=== PATIENT | male | born 1990 | race Caucasian/White ===

== ENCOUNTER 2019-07-30 13:52 | Emergency (ER) | payer SELFPAY ==
[2019-07-30 13:57] VITALS: BP 134/75; PULSE 65; RESP 12; TEMP 36.9; O2SAT 99
[2019-07-30 14:11] VITALS: RESP 16
--- NOTE | 2019-07-30 14:13 | ED.GENADUL_ITS ---
Discharge Plan Disposition Patient Disposition: HOME Condition: Improving Discharge Details Chief Complaint: Chest Pain Clinical Impression: Atypical chest pain Primary Care Provider: Jeffery Andino ED Provider: Maunel Lin Home Meds and New Rx's Prescriptions: No Action No Known Home Meds RF: 0 Discharge Instructions Instructions: Chest Pain (ED) Additional Instructions: Home to rest today. May use Tylenol if needed for further aches or pains. Return if you develop shortness of breath, fever, worsening discomfort or any other acute concerns. You were given ketorolac and you may have additional ibuprofen for pain if needed in 6 hours time. Medical Decision Making This is an otherwise healthy 29-year-old male who states he recently had viral/flulike symptoms with cough. Subsequently he developed transient 2 to 10 minutes left sided pressure or bubblelike dull discomfort in his chest that improved with a popsicle. He is not had shortness of breath, no fevers. No prolonged immobilization denies recent travel, lower extremity pain or swelling. His vital signs are normal and his exam is reassuring. ECG Data Attestation: I personally reviewed and interpreted this ECG (s) as follows: Interpretation: Normal sinus rhythm with a rate of 83, the QRS is narrow, there is no ST segment elevation present. QTC of 446. HPI General Mode of arrival: ambulatory . Date/Time Provider Initiated Documentation: 07/30/19 13:55 . Limitations to Documentation: no limitations . Information obtained by: patient . History of Present Illness 29 year old M presents to the emergency department with the chief complaint of Left chest intermittent discomfort, described as mild, Quality is described as dull, and is localized to the chest and left. Patient reports no radiation. Patient started experiencing this day(s) and it has been intermittent and now resolved. No relieving factors improve symptom(s), No exacerbating factors reported . Patient notes other (Recent flulike symptoms which he states are improving. Improves with a popsicle.). Patient did receive the following treatments prior to arrival, none Related Data Home Medications Medication Instructions Recorded Confirmed Unknown [No Known Home Meds] 07/30/19 07/30/19 Allergies Allergy/AdvReac Type Severity Reaction Status Date / Time No Known Allergies Allergy Unverified 07/30/19 13:59 General Stated Complaint: Chest Pain JAY JAY: 3 Review of Systems Narrative: 6 systems reviewed and otherwise negative [facility] Family History Mother COPD (chronic obstructive pulmonary disease) Father Hyperlipidemia Sister No problems noted. Brother Mental disorder ANXIETY/DEPRESSION Grandfather Essential hypertension Heart disease Hyperlipidemia Grandfather Diabetes Heart disease Mental disorder DEMENTIA Grandmother Essential hypertension Personal history of malignant neoplasm Grandmother Hyperlipidemia Brother Asthma Social History Smoking/Tobacco Use Status: Current every day Tobacco Type: cigarettes Alcohol Intake: never Drug use: Never Substance use type: does not use Do you feel safe at home: Yes Do you feel safe in your relationship?: Yes Exam Narrative Exam Narrative: GEN: awake, alert, oriented 3. Pleasant, well groomed, interactive. HEAD: Normocephalic, atraumatic ENT: Mucous membranes moist, oropharynx unremarkable, External ear exam unremarkable EYES: PERRL, EOMI NECK: Full ROM, no MAGUI, no menigismus CHEST/RESP: Nontender, clear to auscultation bilateral, no wheeze/rhonchi/rales CARDIOVASCULAR: RRR, no murmur, rub carlos. 2+ Rad pulse bilateral ABDOMEN: Soft, nontender, no mass. +Bowel sounds EXT: Full ROM, no edema, no rash Neuro: Grossly normal neurologic exam, conversant, interactive. Psych: Speech fluent, thoughts congruent, affect normal Course Vital Signs Vital signs: Vital Signs Temperature 36.9 C 07/30/19 13:57 Pulse 65 07/30/19 13:57 Respiratory Rate 12 07/30/19 13:57 Blood Pressure 134/75 07/30/19 13:57 Pulse Oximetry 99 07/30/19 13:57 Temperature 36.9 C 07/30/19 13:57 Temperature Source Temporal Artery Scan 07/30/19 13:57 Pulse 65 07/30/19 13:57 Respiratory Rate 16 07/30/19 14:11 Respiratory Effort Non-Labored 07/30/19 14:11 Respiratory Depth Normal 07/30/19 14:11 Respiratory Pattern Normal 07/30/19 14:11 Blood Pressure 134/75 07/30/19 13:57 Blood Pressure Position Sitting 07/30/19 13:57 Pulse Oximetry 99 07/30/19 13:57 Oxygen Delivery Method Room Air 07/30/19 13:57 Oxygen Flow Rate 0 07/30/19 13:57 Pain Level 2 07/30/19 14:11
[2019-07-30 14:25] LABS: Abs Immature Grans 0.01 k/cumm (0.0-0.09); Absolute Basophil Count 0.01 k/cumm (0.0-0.2); Absolute Eosinophil Count 0.07 k/cumm (0.0-0.7); Absolute Lymphocyte Count 1.57 k/cumm (1.2-3.4); Absolute Monocyte Count 0.53 k/cumm (0.11-0.7); Absolute Neutrophil Count 5.42 k/cumm (1.2-6.7); Basophils % 0.1; Eosinophils % 0.9; HCT 43.9 % (40.0-50.0); HGB 15.1 g/dL (13.5-17.5); Immature Grans % 0.1 %; Lymphocytes % 20.6; Mean Corp. HGB Concentration 34.4 g/dL (32.0-36.0); Mean Corpuscular Hemoglobin 29.8 pg (27.0-33.0); Mean Corpuscular Volume 86.6 fL (80-95); Mean Platelet Volume 10.8 fL (8.0-11.0); Neutrophils % 71.3; Platelet Count 222 x1000/uL (130-400); RBC 5.07 m/cumm (4.50-6.00); RBC Distribution Width 12.6 % (11.8-14.1); White Blood Cell Count 7.61 k/cumm (4.4-10.8)
--- NOTE | 2019-07-30 14:28 | DI.RAD_ITS ---
EXAM: XR CHEST 2V PA AND LATERAL INDICATION: cough, L chest discomfort. COMPARISON: No exams were available for comparison TECHNIQUE: 2D digital imaging was performed. FINDINGS: Cardiac and mediastinal contours have a normal appearance. The lungs are well inflated and clear. N o infiltrate, effusion or pneumothorax is seen. IMPRESSION: Negative chest x-ray.
[2019-07-30 14:39] LABS: ALT 24 U/L (16-63); AST 14 U/L (15-37); Albumin 4.3 g/dL (3.4-5.0); Alkaline Phosphatase 69 U/L (46-116); Anion Gap 8.7 mmol/L (3-11); BUN 7 mg/dL (7-18); Bilirubin, Total 0.3 mg/dL (0.2-1.0); CO2 30.3 mmol/L (21.0-32.0); CREATININE 0.81 mg/dL (0.70-1.30); Calcium 9.7 mg/dL (8.5-10.1); Chloride 104 mmol/L (98-107); Glucose 129 mg/dL (74-106); Magnesium 1.8 mg/dL (1.8-2.4); Potassium 3.8 mmol/L (3.5-5.1); Sodium 143 mmol/L (136-145); Total Protein 7.7 g/dL (6.4-8.2)
[2019-07-30 14:41] LABS: Troponin I < 0.05 ng/Ml (<0.06)
[2019-07-30 15:10] VITALS: BP 134/75; PULSE 65; RESP 16; TEMP 36.9; O2SAT 99
[2019-07-30] MEDS: Ketorolac 15 MG/ML VIAL IVP (15:10)
[2019-07-30 15:14] VITALS: BP 134/79; PULSE 87; RESP 16; TEMP 37.1; O2SAT 98
== END 2019-07-30 15:10 | disposition home or self-care (01) ==
PROVIDERS: Emergency Provider Emergency Medicine; PCP Family Medicine
DX: R07.89 Other chest pain (principal); F17.210 Nicotine dependence, cigarettes, uncomplicated
CPT/HCPCS: 36415; 80053; 93005; 96374; 99285; 71046; 83735; 84484; 85025; 93010; 99284; J1885

== ENCOUNTER 2020-09-27 16:27 | Outpatient (REF) | payer MEDICAID, SELFPAY ==
--- NOTE | 2020-09-27 16:13 | SKI_PTH ---
PATIENT: Martin Moreno LOC: [facility] U#:[id number] AGE/SX: 30/M ROOM: RE09/27/[address]: Reuben Tucker DO : 1990 BED: DIS: 09/27/2020 SPEC #: [id number] RECD: 09/27/20 17:53 STATUS: DIMITRI REQ #: [id number] RUSTY: 09/27/20 16:[address]: Reuben Tucker DEPT: Surgical Specimen RECD BY: Magy Roman ENTERED: 09/27/20 17:53 SP TYPE: RENETTA CARL DR: Daniela Ram, PhD PIZZA CHEF Tissues: 1 - SKIN BIOPSY(SHAVE/PUNCH) Procedures: SKIN LEVEL 4 Comments: [id number]
== END 2020-09-27 16:28 | disposition home or self-care (01) ==
LOC: LBN 16:27
PROVIDERS: PCP Nurse Practitioner; Visit Provider Otolaryngology Otolaryngology/Facial Plastic Surgery
DX: L82.0 Inflamed seborrheic keratosis (principal)
CPT/HCPCS: 88305

== ENCOUNTER 2021-06-17 02:48 | Outpatient (CLI) | payer MEDICAID, SELFPAY ==
[2021-06-17 13:48] LABS: Hemoglobin A1C 5.4 % (<5.7)
[2021-06-17 14:16] LABS: Calculated LDL 112 mg/dL (<100); Cholesterol 171 mg/dL (<200); HDL Cholesterol 38 mg/dL (40-60); Triglyceride 107 mg/dL (<150)
== END 2021-06-17 02:49 | disposition home or self-care (01) ==
LOC: LBO 02:48
PROVIDERS: PCP Nurse Practitioner; Visit Provider Nurse Practitioner
DX: Z13.1 Encounter for screening for diabetes mellitus (principal); Z13.6 Encounter for screening for cardiovascular disorders; Z13.220 Encounter for screening for lipoid disorders
CPT/HCPCS: 36415; 80061; 83036

== ENCOUNTER 2025-02-17 04:46 | Outpatient (CLI) | payer MEDICAID, SELFPAY ==
[2025-02-17 12:39] LABS: ALT 23 U/L (16-63); AST 15 U/L (15-37); Albumin 4.0 g/dL (3.4-5.0); Alkaline Phosphatase 93 U/L (46-116); Anion Gap 6.6 mmol/L (3-11); BUN 8 mg/dL (7-18); Bilirubin, Total 0.4 mg/dL (0.2-1.0); CO2 31.4 mmol/L (21.0-32.0); Calcium 9.2 mg/dL (8.5-10.1); Calculated LDL 172 mg/dL (<100); Chloride 103 mmol/L (98-107); Cholesterol 236 mg/dL (<200); Estimated GFR 119.84 (mL/min/1.73m2); Glucose 93 mg/dL (74-106); HDL Cholesterol 33 mg/dL (>or=40); Potassium 3.7 mmol/L (3.5-5.1); Sodium 141 mmol/L (136-145); Total Protein 7.4 g/dL (6.4-8.2); Triglyceride 155 mg/dL (<150)
== END 2025-02-17 04:47 | disposition home or self-care (01) ==
PROVIDERS: PCP Nurse Practitioner Family; Visit Provider Nurse Practitioner Family
DX: Z00.00 Encounter for general adult medical examination without abnormal findings (principal); F41.9 Anxiety disorder, unspecified; F17.200 Nicotine dependence, unspecified, uncomplicated
CPT/HCPCS: 36415; 80053; 80061